=== PATIENT | male | born 1975 | race Caucasian/White ===

== ENCOUNTER 2018-12-16 12:06 | Emergency (ER) | payer OTHER ==
[~2018-12-16] VITALS: Ht 182.9 cm; Wt 111.1 kg
--- NOTE | 2018-12-16 12:25 | ER.PDOC ---
General Chief Complaint: Requesting Medical Care Stated Complaint: SOB,RETAINING FLUID Time seen by MD: 12:25 Source: patient Exam Limitations: no limitations History of Present Illness Initial Comments Pt with h/o HTN, DM, CHF, who started over the last few hours to have increasing shortness of breath, some chest pain midsternal Timing/Duration: 4-6 hours Severity: severe Activities at Onset: none Prior Episodes/Possible Cause: frequent episodes, chronic episodes Modifying Factors: improves with activity Associated Symptoms: denies symptoms Prior symptoms/Treatment: Similar symptoms previous, Recenly Seen Allergies: Coded Allergies: Penicillins (Verified Allergy, Unknown, Hives, 12/16/18) Sulfa (Sulfonamide Antibiotics) (Verified Allergy, Unknown, Hives, 12/16/18) Review of Systems Constitutional: see HPI EENTM: no symptoms reported Respiratory: see HPI Cardiovascular: see HPI Gastrointestinal: no symptoms reported Genitourinary: no symptoms reported Musculoskeletal: no symptoms reported Skin: no symptoms reported Psychiatric/Neurological: no symptoms reported Endocrine: no symptoms reported Hematologic/Lymphatic: no symptoms reported Physical Exam General Appearance: No Apparent Distress, WD/WN HEENT: PERRL/EOMI, Normal ENT Inspection, TMs Normal, Pharynx Normal Neck: Non-Tender, Full Range of Motion, Supple, Normal Inspection Respiratory: chest non-tender, decreased breath sounds Cardiovascular: Normal Peripheral Pulses, No Edema, No Gallop, No JVD, No Murmur, Tachycardia Gastrointestinal: Normal Bowel Sounds, No Organomegaly, No Pulsatile Mass, Non Tender, Soft Extremities: Normal Range of Motion, Non-Tender, Normal Inspection, No Calf Tenderness, Normal Capillary Refill, Pedal Edema (4/6) 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 (12/16/18 12:40) Xr Chest 1v (12/16/18 12:40) Ekg-Routine (12/16/18 12:40) Aspirin (Aspirin) (12/16/18 13:00) Nitroglycerin (Nitrostat) (12/16/18 13:00) Furosemide (Lasix) (12/16/18 12:40) Nitroglycerin (Nitrostat) (12/16/18 13:00) Furosemide (Lasix) (12/16/18 13:01) Aspirin (Aspirin) (12/16/18 13:01) Acetaminophen With Codeine (Tylenol #3) (12/16/18 13:01) Insulin Regular, Human (Humulin R) (12/16/18 14:00) Potassium Chloride (Klor-Con 10) (12/16/18 14:00) Potassium Chloride (Klor-Con 10) (12/16/18 13:59) Troponin I (12/16/18 14:13) Vital Signs Date Time Temp Pulse Resp B/P (MAP) Pulse Ox O2 Delivery O2 Flow Rate FiO2 12/16/18 13:17 96/69 12/16/18 12:30 97.7 107 17 123/83 (96) 98 Room Air 97.7 12/16/18 12:11 97.7 107 17 97.7 12/16/18 12:11 97.7 107 17 98 Room Air 97.7 Administered Medications Medications (Trade) Dose Ordered Sig/Neil Route PRN Reason Start Time Stop Time Status Last Admin Dose Admin Aspirin (Aspirin) 325 mg DAILY PRN PO CHEST PAIN 12/16/18 13:00 01/15/19 12:59 12/16/18 13:17 325 MG Furosemide (Lasix) 60 mg STAT STAT IV 12/16/18 12:40 12/16/18 12:43 DC 12/16/18 13:17 60 MG Nitroglycerin (Nitrostat) 0.4 mg PRN PRN SL CHEST PAIN 12/16/18 13:00 01/15/19 12:59 12/16/18 13:17 0.4 MG Potassium Chloride (Klor-Con 10) 40 meq STAT PO 12/16/18 14:00 01/15/19 13:59 12/16/18 14:03 40 MEQ Laboratory Tests Test 12/16/18 12:55 12/16/18 12:59 12/16/18 14:25 White Blood Count 6.7 10^3/uL (4.5-11.0) Red Blood Count 5.13 10^6/uL (4.50-5.90) Hemoglobin 13.0 g/dL (13.9-16.3) L Hematocrit 39.7 % (37.0-53.0) Mean Corpuscular Volume 77.4 fL (78-100) L Mean Corpuscular Hemoglobin 25.3 pg (26-34) L Mean Corpuscular Hemoglobin Concent 32.7 g/dL (33-37) L Red Cell Distribution Width 15.4 % (11.5-14.5) H Platelet Count 265 10^3/uL (150-400) Mean Platelet Volume 11.7 fL (7.8-11.0) H Neutrophils (%) (Auto) 57.7 % (41.0-85.0) Lymphocytes (%) (Auto) 25.3 % (24.0-44.0) Monocytes (%) (Auto) 15.2 % (5.0-12.0) H Neutrophils # (Auto) 3.9 10^3/uL (1.8-7.7) Lymphocytes # (Auto) 1.7 10^3/uL (1.0-4.8) Monocytes # (Auto) 1.0 10^3/uL (0.3-0.8) H Absolute Immature Granulocyte (auto 0.02 10^3 u/L (0-2) Immature Granulocytes % 0.30 % (0.00-0.50) Eosinophils % 0.9 % (0.0-5.0) Basophils % 0.6 % (0.0-0.2) H Basophils # 0.0 10^3/uL (0.0-0.1) Eosinophil Count 0.1 10^3/uL (0.0-0.2) Prothrombin Time 11.2 SEC (9.8-11.9) Prothrombin Time INR (Non-Therap) 1.1 PTT 22.1 SEC (24.67-30.72) Sodium Level 133 mmol/L (132-145) Potassium Level 3.5 mmol/L (3.6-5.2) L Chloride Level 96.0 mmol/L (96-109) Carbon Dioxide Level 28.9 mmol/L (20.0-32) Anion Gap 11.6 Blood Urea Nitrogen 18 mg/dL (7-18) Creatinine 1.18 mg/dL (0.59-1.40) Estimated GFR () 82.3 (>/=60) BUN/Creatinine Ratio 15.0 Glucose Level 475 mg/dL (70-110) *H Calcium Level 9.0 mg/dL (8.4-10.5) Total Bilirubin 2.1 mg/dL (0.2-1.0) H Aspartate Amino Transferase (AST) 17 U/L (0-35) Alanine Aminotransferase (ALT) 25 U/L (12-78) Alkaline Phosphatase 194 U/L (50-136) H Total Creatine Kinase 34 U/L (39-308) L Troponin I 0.05 ng/mL (0.00-0.05) 0.04 ng/mL (0.00-0.05) Pro-B-Type Natriuretic Peptide 2510 pg/mL (0-125) H Total Protein 6.9 g/dL (6.4-8.2) Albumin 3.5 g/dL (3.4-5.0) Globulin 3.4 Differential Total Cells Counted 100 #CELLS Segmented Neutrophils 53 % (31-76) Lymphocytes 31 % (25-36) Monocytes 14 % (3-9) H Basophils 2 % (0-2) Platelet Estimate ADEQUATE Platelet Morphology NORMAL Poikilocytosis 1+ (NEGATIVE) Anisocytosis 1+ (NEGATIVE) Departure Time of Disposition: 14:56 Disposition: 01 HOME, SELF-CARE Impression: Primary Impression: CHF (congestive heart failure) Additional Impressions: CHF exacerbation Chest pain Condition: Stable Referrals: PCP,UNKNOWN (PCP) PRIMARY CARE PROVIDER Duration or Time Spent with Pa: 20 Problem Qualifiers BEKAH RIVAS MD December 16, 2018 12:25
[2018-12-16 12:30] VITALS: BP 123/83
[2018-12-16] MEDS ORDERED: LASIX IV STA (12:40)
--- NOTE | 2018-12-16 12:42 | PCM.EKG ---
[facility] Test Date: 2018-12-16 Test Time: 12:30:40 Pat Name: YEIMY CABRAL Department: Patient ID: [facility]-[id number] Room: Gender: M Varnisher: GERARDO : 1975 Requested By: BEKAH SANCHEZ Order Number: [id number] Reading MD: Bekah Sanchez Measurements Intervals [place] Rate: 108 P: 49 ME: 136 QRS: -32 QRSD: 176 T: 110 QT: 420 QTc: 562 Interpretive Statements Sinus tachycardia Left axis deviation Left bundle branch block Abnormal ECG No previous ECG available for comparison Electronically Signed On 12-22-2018 14:55:45 CDT by Bekah Sanchez Please click the below link to view image of tracing.
[2018-12-16 12:58] LABS: BASOPHIL % 0.6 % (0.0-0.2); EOSINOPHIL # 0.1 10^3/uL (0.0-0.2); EOSINOPHIL % 0.9 % (0.0-5.0); LYMPHOCYTES # 1.7 10^3/uL (1.0-4.8); LYMPHOCYTES % 25.3 % (24.0-44.0); MEAN CELL HGB 25.3 pg (26-34); MEAN CELL HGB CONCENTRATION 32.7 g/dL (33-37); MEAN CORP VOLUME 77.4 fL (78-100); MEAN PLATELET VOLUME 11.7 fL (7.8-11.0); MONOCYTES % 15.2 % (5.0-12.0); NEUTROPHIL # 3.9 10^3/uL (1.8-7.7); NEUTROPHILS % 57.7 % (41.0-85.0); RED CELL DISTRIBUTION WIDTH 15.4 % (11.5-14.5); WHITE BLOOD CELL 6.7 10^3/uL (4.5-11.0)
[2018-12-16] MEDS ORDERED: ASPIRIN PO PRN (13:00)
[2018-12-16] MEDS ORDERED: NITROSTAT SL ONE (13:00)
[2018-12-16] MEDS ORDERED: NITROSTAT SL PRN (13:00)
[2018-12-16] MEDS ORDERED: TYLENOL #3 PO ONE (13:01)
[2018-12-16] MEDS ORDERED: LASIX ONE (13:01)
[2018-12-16] MEDS ORDERED: ASPIRIN ONE (13:01)
[2018-12-16 13:20] LABS: CARBON DIOXIDE 28.9 mmol/L (20.0-32)
--- NOTE | 2018-12-16 13:28 | NUR ---
critical lab [facility] FROM LAB CALLED TO REPORT BLOOD GLUCOSE OF 475, REPORTED TO DR. RIVAS.
[2018-12-16 13:30] VITALS: BP 105/68
[2018-12-16 13:45] LABS: ANISOCYTOSIS 1+ (NEGATIVE); BASOPHIL 2 % (0-2); LYMPHOCYTE 31 % (25-36); MONOCYTE 14 % (3-9); SEGMENTED NEUTROPHILS 53 % (31-76)
--- NOTE | 2018-12-16 13:49 | DIREP ---
PROCEDURE:CHEST 1 VIEW COMPARISON:None. INDICATIONS:SOB FINDINGS: LUNGS/PLEURA:No focal consolidation, pleural effusion, or pneumothorax. VASCULATURE:Normal. Unremarkable pulmonary vasculature. CARDIAC:Borderline cardiomegaly. MEDIASTINUM:Normal. No visible mass or adenopathy. BONES:Normal. No fracture or visible bony lesion. OTHER:Negative. CONCLUSION: 1. No focal consolidation, pleural effusion or pneumothorax. 2. Borderline cardiomegaly. Dictated by: Job Sellers MD on 12/16/2018 at 01:47 PM
[2018-12-16] MEDS ORDERED: KLOR-CON 10 PO ONE (13:59)
[2018-12-16] MEDS ORDERED: KLOR-CON 10 PO SCH (14:00)
[2018-12-16] MEDS ORDERED: HUMULIN R SQ ONE (14:00)
[2018-12-16 14:30] VITALS: BP 115/60
--- NOTE | 2018-12-16 14:39 | NUR ---
INSULIN 10 UNITS REGULAR INSULIN ADMINISTERED SUBCUTANEOUS TO RIGHT POSTERIOR ARM AT THIS TIME PER DR RIVAS ORDER. PT BLOOD GLUCOSE 475MG/DL. ORDER FOR INSULIN NOT CROSSING INTO EMAR.
--- NOTE | 2018-12-16 15:08 | NUR ---
BLOOD SUGAR REPEAT BLOOD SUGAR FINGERSTICK OF 432. REPORTED TO
[2018-12-16] MEDS ORDERED: TYLENOL #3 PO STA (15:11)
[2018-12-16 15:15] VITALS: BP 120/80
--- NOTE | 2018-12-16 15:17 | NUR ---
DISMISSAL PT DC'D IN STABLE CONDITION.
[2018-12-16 15:26] VITALS: BP 120/80
== END 2018-12-16 15:17 | disposition home or self-care (01) ==
LOC: ER 12:06
DX: I11.0 Hypertensive heart disease with heart failure (principal); E11.9 Type 2 diabetes mellitus without complications; I50.9 Heart failure, unspecified; Z88.0 Allergy status to penicillin; Z88.2 Allergy status to sulfonamides
CPT/HCPCS: 36415; 71045; 80053; 82550; 82948; 83880; 84484 ×2; 85025; 85610; 85730; 93005; 96374; 99285; J1940; J3490 ×2